=== PATIENT | female | born 1955 | race Caucasian/White ===

== ENCOUNTER 2016-11-25 17:07 | Emergency (ER) | payer BC, OTHER ==
[2016-11-25 19:24] VITALS: BP 130/74
--- NOTE | 2016-11-25 19:39 | UC ---
Upper Extremity HPI - HPI Summary HPI Summary: 61 year old female complaining of left anterior chest wall pain and left shoulder discomfort after she slipped and fell on ice this morning with her left arm extended outward. Patient reports limited ROM in the left shoulder and weakness in the left arm, inability to raise the arm. Pain in the chest wall is constant, worsens with movement. - History of Current Complaint Chief Complaint: UCUpperExtremity Stated Complaint: SHOULDER INJURY WC Time Seen by Provider: 11/25/16 19:27 Hx Obtained From: Patient ?: No Onset/Duration: Sudden Onset Severity Initially: Moderate Severity Currently: Moderate Pain Intensity: 7 Pain Scale Used: 0-10 Numeric Location Of Pain: Is Discrete @ - Left chest wall Alleviating Factor(s): Nothing Associated Signs And Symptoms: Positive: Weakness - Risk Factors DVT Risk Factors: Negative Septic Arthritis Risk Factor: Negative Compartment Syndrome Risk Factors: Pain - Allergies/Home Medications Allergies/Adverse Reactions: Allergies Allergy/AdvReac Type Severity Reaction Status Date / Time Ciprofloxacin Allergy Severe Itching Verified 11/25/16 19:13 Clindamycin Allergy Severe Itching Verified 11/25/16 19:13 Cephalexin [From Keflex] Allergy Hives Verified 11/25/16 19:11 Codeine Allergy Unknown Verified 11/25/16 19:11 Reaction Details PMH/Surg Hx/FS Hx/Imm Hx Previously Healthy: Yes Endocrine History Of: Denies: Diabetes Cardiovascular History Of: Reports: Cardiac Disorders - Heart murmur Denies: Hypertension, Pacemaker/ICD Respiratory History Of: Denies: COPD, Asthma, Bronchitis, Pneumonia, Pulmonary Embolism GI/ History Of: Denies: Gastroesophageal Reflux, Ulcer, Gastrointestinal Bleed, Gall Bladder Disease, Kidney Stones, Diverticulitis, Renal Disease, Urosepsis Neurological History Of: Denies: TIA, CVA, Dementia, Seizures, Migraine Psychological History Of: Denies: Anxiety, Depression, Bipolar Disorder, Schizophrenia, Post Traumatic Stress Disorder Cancer History Of: Denies: Breast Cancer - Surgical History Surgical History: Yes Surgery Procedure, Year, and Place: 08/17/13 HERNIA SURGERY X2,[facility]. 2004& 06 [facility]. 1981 D&C. May 2015 RIGHT hip prosthetic - Social History Occupation: Employed Full-time Lives: With Family Alcohol Use: Rare Substance Use Type: None Smoking Status (MU): Never Smoked Tobacco Review of Systems Constitutional: Negative Eyes: Negative ENT: Negative Respiratory: Negative Cardiovascular: Negative Gastrointestinal: Negative Genitourinary: Negative Motor: Negative Neurovascular: Negative Musculoskeletal: Decreased ROM - Left shoulder Neurological: Negative Psychological: Negative All Other Systems Reviewed And Are Negative: Yes Physical Exam Triage Information Reviewed: Yes Appearance: Well-Appearing Vital Signs: Initial Vital Signs Temp 98 F 11/25/16 19:14 Pulse 60 11/25/16 19:14 Resp 18 11/25/16 19:14 BP 130/74 11/25/16 19:14 Pulse Ox 97 11/25/16 19:14 Vital Signs Reviewed: Yes Eye Exam: Normal Eyes: Positive: Conjunctiva Clear ENT Exam: Normal ENT: Positive: Normal ENT inspection Dental Exam: Normal Neck: Positive: Supple, Nontender, No Lymphadenopathy Respiratory: Positive: Chest non-tender, Lungs clear, Normal breath sounds, No respiratory distress Cardiovascular: Positive: RRR, No Murmur, Pulses Normal Abdomen Description: Positive: Nontender, No Organomegaly, Soft Bowel Sounds: Positive: Present Musculoskeletal: Positive: Strength Limited @ - Left shoulder, tenderness in the left AC joint, ROM Limited @ - Unable to raise the left shoudler Neurological: Positive: Alert Psychological Exam: Normal Skin Exam: Normal Upper Extremity Course/Dx - Differential Dx/Diagnosis Provider Diagnoses: Suspected Left rotator cuff tear. Left upper chest wall injury. Left AC joint injury Discharge - Discharge Plan Condition: Stable Disposition: HOME Prescriptions: Cyclobenzaprine TAB* [Flexeril TAB*] 5 mg PO BEDTIME #14 tab Naproxen TAB* [Naprosyn TAB*] 500 mg PO BID #20 tab Patient Education Materials: Chest Wall Pain (ED), Rotator Cuff Injury (ED) Referrals: Fercho Garza MD [Primary Care Provider] - Charla Jamison MD [Medical Doctor] - Additional Instructions: Follow up with ortho if symptoms persist
--- NOTE | 2016-11-25 20:12 | RAD ---
INDICATION: Left shoulder injury. TECHNIQUE: 3 views of the left shoulder were obtained. FINDINGS: The bones are in normal alignment. No fracture is seen. Joint spaces appear maintained. IMPRESSION: NO EVIDENCE OF FRACTURE.
[2016-11-25] MEDS ORDERED: Cyclobenzaprine TAB* 10 MG PO ONE (20:37)
== END 2016-11-25 20:47 | disposition home or self-care (01) ==
LOC: UCEAST 17:07
DX: S29.9XXA Unspecified injury of thorax, initial encounter (principal); S49.92XA Unspecified injury of left shoulder and upper arm, initial encounter; W00.0XXA Fall on same level due to ice and snow, initial encounter; Y93.9 Activity, unspecified; Y92.9 Unspecified place or not applicable; Z88.1 Allergy status to other antibiotic agents; Z88.5 Allergy status to narcotic agent
CPT/HCPCS: 99213; A9270-GY; G0463

== ENCOUNTER 2017-11-10 21:49 | Emergency (ER) | payer BC ==
[2017-11-10] MEDS ORDERED: predniSONE TAB* 20 MG PO ONE (22:27)
[2017-11-10] MEDS ORDERED: Aspirin Low Dose CHEW TAB* 81 MG PO ONE (22:28)
[2017-11-10] MEDS ORDERED: ValACYclovir (*) 1 GM TAB PO ONE (23:00)
[2017-11-10 23:44] LABS: ABS Basophils 0.1 10^3/ul (0-0.2); ABS Eosinophils 0.3 10^3/ul (0-0.6); ABS Lymphocytes 2.5 10^3/ul (1.0-4.8); ABS Monocytes 0.7 10^3/ul (0-0.8); ABS Neutrophils 3.4 10^3/ul (1.5-7.7); ABS Nucleated RBC 0 10^3/ul; Eosinophil % 4.4 % (0-6); Hematocrit 37 % (35-47); Lymphocyte % 35.9 % (25-47); Mean Corpuscular HGB Conc 33 g/dl (31-36); Mean Corpuscular Hemoglobin 31 pg (27-31); Mean Corpuscular Volume 93 fL (80-97); Mean Platelet Volume 7 um3 (7.4-10.4); Nucleated Red Blood Cells % 0.1; Platelet Count 220 10^3/ul (150-450); Red Blood Count 3.95 10^6/ul (4.0-5.4); Red Cell Distribution Width 14 % (10.5-15)
[2017-11-10 23:56] LABS: INR 0.82 (0.77-1.02)
[2017-11-11] MEDS ORDERED: Artificial Tear OPHTH.OINT* 3.5 GM LEFT EYE PRN (00:06)
[2017-11-11] MEDS ORDERED: Artificial Tears* 15 ML BTL LEFT EYE PRN (00:06)
[2017-11-11 00:32] VITALS: BP 110/52
[2017-11-11 00:50] LABS: EGFR Non-African American 60.3 (>60)
--- NOTE | 2017-11-11 00:50 | ED ---
Aline Combs Nilda, scribed for Zack Tracey MD on 11/10/17 at 2227 . Complex/Multi-Sys Presentation - HPI Summary HPI Summary: This patient is a 62 year old F presenting to [facility] with a CC of constant facial asymmetry in which the whole left side of my face is not operating properly since this evening (2119). This morning left eye was not closing. Patient reports L-sided facial numbness (similar to when have Novocain injection ), and L-sided clavicular pain that radiates to muscle underneath (pressure). Symptoms aggravated and alleviated by nothing. Patient denies stress test on heart. Pt states that this morning she visited PCP to review PVR results who recommended she begin taking 81 mg ASA every day. PMHx includes varicose veins, venous ulcers. No PMHx CVA, DM, HTN, Lyme. - History Of Current Complaint Chief Complaint: EDGeneral Hx Obtained From: Patient Onset/Duration: Sudden Onset, Lasting Hours, Still Present Timing: Constant Location: Pain At: - L-clavicle Character: Pressure Aggravating Factor(s): nothing Alleviating Factor(s): nothing Associated Signs And Symptoms: Positive: Other - L-sided facial droop, facial numbness (similar to when have Novocain injection), and L-sided clavicular pain that radiates to muscle underneath (pressure). - Allergies/Home Medications Allergies/Adverse Reactions: Allergies Allergy/AdvReac Type Severity Reaction Status Date / Time Ciprofloxacin Allergy Severe Itching Verified 11/10/17 22:09 Clindamycin Allergy Severe Itching Verified 11/10/17 22:09 Cephalexin [From Keflex] Allergy Hives Verified 11/10/17 22:09 Codeine Allergy Unknown Verified 11/10/17 22:09 Reaction Details PMH/Surg Hx/FS Hx/Imm Hx Endocrine/Hematology History: Denies: Hx Diabetes Cardiovascular History: Denies: Hx Hypertension, Hx Pacemaker/ICD Respiratory History: Denies: Hx Asthma, Hx Chronic Obstructive Pulmonary Disease (COPD), Hx Pneumonia, Hx Pulmonary Embolism GI History: Denies: Hx Gall Bladder Disease, Hx Gastrointestinal Bleed, Hx Ulcer, Hx Urosepsis History: Denies: Hx Kidney Stones, Hx Renal Disease Sensory History: Denies: Hx Hearing Aid Neurological History: Denies: Hx CVA, Hx Dementia, Hx Migraine, Hx Seizures, Hx Transient Ischemic Attacks (TIA) Psychiatric History: Denies: Hx Anxiety, Hx Depression, Hx Panic Disorder, Hx Schizophrenia, Hx Bipolar Disorder - Surgical History Surgery Procedure, Year, and Place: 08/17/13 HERNIA SURGERY X2,[place]. 2004& 06 [facility]. 1981 D&C. May 2015 RIGHT hip prosthetic Infectious Disease History: No Infectious Disease History: Reports: Hx Shingles, History Other Infectious Disease - negative Lyme Denies: Traveled Outside the [place] in Last 30 Days - Family History Known Family History: Positive: Diabetes - mother (geriatric), Other - CVA - Social History Lives: With Family Alcohol Use: Rare Substance Use Type: Reports: None Smoking Status (MU): Never Smoked Tobacco Review of Systems Positive: Other - L-sided clavicular pain Neurological: Other - L-sided facial weakness, L-sided facial numbness, L-eye not closing All Other Systems Reviewed And Are Negative: Yes Physical Exam - Summary Physical Exam Summary: VITAL SIGNS: Reviewed. GENERAL: Patient is a well-developed and nourished female who is lying comfortable in the stretcher. Patient is not in any acute respiratory distress. HEAD AND FACE: No signs of trauma. No ecchymosis, hematomas or skull depressions. No sinus tenderness. Left sided peripheral facial weakness EYES: PERRLA, EOMI x 2, No injected conjunctiva, no nystagmus. EARS: Hearing grossly intact. Ear canals and tympanic membranes are within normal limits. MOUTH: Oropharynx within normal limits. NECK: Supple, trachea is midline, no adenopathy, no JVD, no carotid bruit, no c- spine tenderness, neck with full ROM. CHEST: Symmetric, no tenderness at palpation LUNGS: Clear to auscultation bilaterally. No wheezing or crackles. CVS: Regular rate and rhythm, S1 and S2 present, no murmurs or gallops appreciated. ABDOMEN: Soft, non-tender. No signs of distention. No rebound no guarding, and no masses palpated. Bowel sounds are normal. EXTREMITIES: FROM in all major joints, no edema, no cyanosis or clubbing. Bilat varicose veins in feet NEURO: Alert and oriented x 3. No acute neurological deficits. Speech is normal and follows commands. SKIN: Dry and warm Triage Information Reviewed: Yes Vital Signs On Initial Exam: Initial Vitals Temp Pulse Resp BP Pulse Ox 98.0 F 64 16 130/65 96 11/10/17 21:53 11/10/17 21:53 11/10/17 21:53 11/10/17 21:53 11/10/17 21:53 Vital Signs Reviewed: Yes Diagnostics - Vital Signs Vital Signs Temp Pulse Resp BP Pulse Ox 11/10/17 21:53 98.0 F 64 16 130/65 96 - Laboratory Result Diagrams: 11/10/17 23:25 11/10/17 23:25 Lab Statement: Any lab studies that have been ordered have been reviewed, and results considered in the medical decision making process. - EKG 2209 Cardiac Rate: NL EKG Rhythm: Sinus Rhythm - 65 bpm Ectopy: PACs EKG Interpretation: nonspecific Twave changes in inferior leads Re-Evaluation - Re-Evaluation First Eval Re-Evaluation Time: 00:10 Comment: Reviewed labs with pt. Discussed D/C plan, Dx of Fernandez Palsy and treatment. Pt agreeable to D/C. Complex Multi-Symp Course/Dx Assessment/Plan: Pt is a 62 y/o F presenting to ED with CC of left sided facial weakness and left sided clavicular pain. Exam coincides with superficial left sided facial weakness. An EKG reveals NSR 65 bpm, nonspecific T-wave changes in inferior leads, PACs. Pt will be D/C home with prescription for prednisone valtrax, artificial tears and ointment. 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 - Diagnoses Provider Diagnoses: Atypical chest pain, Left-sided Fernandez's palsy Discharge - Discharge Plan Condition: Stable Disposition: HOME Prescriptions: predniSONE TAB* [Deltasone TAB*] 60 mg PO DAILY #21 tab ValACYclovir (*) [Valtrex 1 GM(*)] 1 gm PO TID #21 tab Patient Education Materials: Chest Pain (ED), Fernandez Palsy (ED) Referrals: Valentín Villeda MD [Medical Doctor] - 1 Day Fercho Garza MD [Primary Care Provider] - 1 Day Additional Instructions: Follow up with primary care and neurology in 1-2 days. RETURN TO THE EMERGENCY DEPARTMENT FOR CHANGING OR WORSENING SYMPTOMS. The documentation as recorded by the Aline viramontes Nilda accurately reflects the service I personally performed and the decisions made by , Zack Tracey MD.
== END 2017-11-11 00:32 | disposition home or self-care (01) ==
LOC: ED 21:49
DX: R07.89 Other chest pain (principal); G51.0 Bell's palsy; R20.0 Anesthesia of skin
CPT/HCPCS: 36415; 80053; 84484; 85025; 85610; 85730; 86618; 93005; 99283; A9270-GY; J7512

== ENCOUNTER 2018-10-18 14:54 | Emergency (ER) | payer BC ==
[2018-10-18 15:05] VITALS: BP 122/63
--- NOTE | 2018-10-18 15:06 | UC ---
Skin Complaint HPI - HPI Summary HPI Summary: 63 yo female presents with possible scabies. She tells me that 2 days ago she was exposed to her friend who has diagnosed scabies. Pt tells me that she has had scabies in the past. This morning around 0400 she woke up in the middle of the night and had intense itching, mostly to her left hand. She does not see any open wounds or burrows on her hands, but states the itching and recent exposure make her concerned she has scabies. - History of Current Complaint Chief Complaint: UCSkin Stated Complaint: ITCHING ON HANDS Hx Obtained From: Patient Hx Last Menstrual Period: post Onset/Duration: Sudden Onset Onset Severity: Mild Current Severity: Mild Pain Intensity: 2 Pain Scale Used: 0-10 Numeric - Allergy/Home Medications Allergies/Adverse Reactions: Allergies Allergy/AdvReac Type Severity Reaction Status Date / Time cephalexin Allergy Severe Hives Verified 10/18/18 15:08 ciprofloxacin [From Cipro] Allergy Severe Itching Verified 10/18/18 15:08 clindamycin Allergy Severe Itching Verified 10/18/18 15:08 codeine Allergy unk Verified 10/18/18 15:08 PMH/Surg Hx/FS Hx/Imm Hx - Additional Past Medical History Additional PMH: None - Surgical History Surgical History: Yes Surgery Procedure, Year, and Place: 08/17/13 [facility]IA SURGERY X2,[place]. 2004& 06 [facility]. 1981 D&C. May 2015 RIGHT hip prosthetic. knee replacement - Family History Known Family History: Positive: Diabetes - mother (geriatric), Other - CVA - Social History Lives: With Family Alcohol Use: Rare Substance Use Type: None Smoking Status (MU): Never Smoked Tobacco Review of Systems All Other Systems Reviewed And Are Negative: Yes Constitutional: Positive: Negative Skin: Positive: Other - Hands itch Respiratory: Positive: Negative Cardiovascular: Positive: Negative Neurovascular: Positive: Negative Neurological: Positive: Negative Psychological: Positive: Negative Physical Exam - Summary Physical Exam Summary: GENERAL: NAD. WDWN. No pain distress. SKIN: B/L hands with scattered dry skin. No appreciable burrows, open wounds, rash, erythema, or edema. NECK: Supple. Nontender. No lymphadenopathy. CHEST: No accessory muscle use. Breathing comfortably and in no distress. CV: Pulses intact. Cap refill <2seconds NEURO: Alert. PSYCH: Age appropriate behavior. Triage Information Reviewed: Yes Vital Signs: Initial Vital Signs Temp 98.2 F 10/18/18 15:00 Pulse 67 10/18/18 15:00 Resp 16 10/18/18 15:00 BP 122/63 10/18/18 15:00 Pulse Ox 100 10/18/18 15:00 Vital Signs Reviewed: Yes Course/Dx - Course Course Of Treatment: No signs of scabies on exam, however pt is requesting treatment due to exposure and intense itch. Will rx for permethrin and have her f/u if her symptoms do not improve. - Diagnoses Provider Diagnosis: Scabies Discharge - Sign-Out/Discharge Documenting (check all that apply): Patient Departure All imaging exams completed and their final reports reviewed: No Studies - Discharge Plan Condition: Stable Disposition: HOME Prescriptions: Permethrin 5% CREAM* 1 applic TOPICAL SEE INSTRUCTIONS #1 tube Patient Education Materials: Scabies (ED) Referrals: Fercho Garza MD [Primary Care Provider] - Additional Instructions: If you develop a fever, shortness of breath, chest pain, new or worsening symptoms - please call your PCP or go to the ED. - Billing Disposition and Condition Condition: STABLE Disposition: Home
== END 2018-10-18 15:21 | disposition home or self-care (01) ==
LOC: UCEAST 14:54
DX: B86 Scabies (principal); Z88.1 Allergy status to other antibiotic agents; Z88.5 Allergy status to narcotic agent
CPT/HCPCS: 99212; G0463